=== PATIENT | female | born 1955 | race Caucasian/White ===

== ENCOUNTER 2018-09-24 13:23 | Emergency (ER) | payer OTHER ==
[~2018-09-24] VITALS: Ht 157.4 cm; Wt 70.3 kg
[~2018-09-24 13:23] MED LIST: AMOXICILLIN875 MG PO; DILTIAZEM CD240 MG PO; MEDROL DOSEPAK4 MG PO; PEPCID40 MG PO; XANAX0.5 MG PO
[2018-09-24] MEDS ORDERED: EPIPEN 2-P0.3 MG/0.3 IJ (13:39)
[2018-09-24] MEDS ORDERED: PREDNISONE10 MG PO (13:39)
[2019-01-12] MEDS ORDERED: CELEXA10 MG PO (13:56)
[2019-01-12] MEDS ORDERED: ASPIR 8181 MG PO (13:57)
[2019-01-12] MEDS ORDERED: METOPROLOL SUCC50 M1 PO (13:57)
[2019-01-12] MEDS ORDERED: LOSARTAN-HCTZ1 EAC1 PO (13:57)
== END 2018-09-24 13:44 | disposition home or self-care (01) ==
LOC: ED 13:23
DX: R21 Rash and other nonspecific skin eruption (principal); R03.0 Elevated blood-pressure reading, without diagnosis of hypertension; F17.200 Nicotine dependence, unspecified, uncomplicated; Z88.2 Allergy status to sulfonamides; Z88.8 Allergy status to other drugs, medicaments and biological substances; Z79.2 Long term (current) use of antibiotics; Z79.899 Other long term (current) drug therapy; Z90.49 Acquired absence of other specified parts of digestive tract

== ENCOUNTER → 2019-01-12 | Outpatient (CLI) | payer OTHER ==
[~2019-01-12] MED LIST changes: +ASPIR 8181 MG PO; +CELEXA10 MG PO; +EPIPEN 2-P0.3 MG/0.3 IJ; +LOSARTAN-HCTZ1 EAC1 PO; +METOPROLOL SUCC50 M1 PO; +PREDNISONE10 MG PO
--- NOTE | ~2019-01-12 | ST ---
[place], [place] EXERCISE STRESS TEST REPORT NAME: DALLAS HUNTER UNIT #: [id number] ROOM: DOCTOR: SHARRON CHIU [facility] BIRTHDATE: [birth year] DOS: 01/12/2019 LEXISCAN WITH CARDIOLITE The patient underwent Lexiscan Cardiolite. Lexiscan 0.4 mg over 10 seconds was given. Isotope was injected. Basic rhythm is sinus. No acute changes on the EKG. No complication noted. Myocardial perfusion scan to follow. The patient tolerated the procedure well. HUBER MCDERMOTT MD CM:STRESS:EXERCISE STRESS TEST REPORT [id number] HUBER MCDERMOTT MD [facility]
== END | disposition home or self-care (01) ==
LOC: CARD 01:13
DX: R07.89 Other chest pain (principal); R53.81 Other malaise

== ENCOUNTER → 2019-09-14 | Outpatient (CLI) | payer OTHER ==
[2019-09-14 13:16] LABS: FREE T4 1.12 ng/dl (0.76-1.46)
[2019-09-14 13:22] LABS: THYROID STIM HORMONE (HS) 2.59 uIU/ml (0.358-4.75)
== END | disposition home or self-care (01) ==
LOC: LAB 12:17
PROVIDERS: Internal Medicine Cardiovascular Disease
DX: I10 Essential (primary) hypertension (principal)

== ENCOUNTER → 2019-10-06 | Outpatient (CLI) | payer OTHER | END | disposition home or self-care (01) | LOC: RESCLI 00:37 | DX: Z12.11 Encounter for screening for malignant neoplasm of colon (principal); Z12.31 Encounter for screening mammogram for malignant neoplasm of breast; Z12.4 Encounter for screening for malignant neoplasm of cervix; Z76.89 Persons encountering health services in other specified circumstances; Z71.6 Tobacco abuse counseling; F41.9 Anxiety disorder, unspecified; I10 Essential (primary) hypertension; E66.3 Overweight; F17.210 Nicotine dependence, cigarettes, uncomplicated; R00.1 Bradycardia, unspecified; R06.81 Apnea, not elsewhere classified; Z88.2 Allergy status to sulfonamides; Z88.8 Allergy status to other drugs, medicaments and biological substances ==

== ENCOUNTER → 2019-10-10 | Outpatient (CLI) | payer OTHER ==
[2019-10-10 09:55] LABS: BASO % 0.7 % (0.0-1.0); EOS # 0.2 10*3/uL (0.0-0.4); EOS % 4.2 % (1.0-4.0); HEMATOCRIT 41.4 % (37.0-47.0); HEMOGLOBIN 13.6 g/dl (12.0-16.0); LYMPH # 1.9 10*3/uL (1.3-4.4); LYMPH % 46.2 % (27.0-41.0); MEAN CORPUSCULAR HGB 31.9 pg (27.0-31.0); MEAN CORPUSCULAR HGB CONC 32.9 g/dl (33.0-37.0); MONO # 0.3 10*3/uL (0.1-1.0); MONO % 8.4 % (3.0-9.0); NEUT # 1.7 10*3/uL (2.3-7.9); NEUT % 40.5 % (47.0-73.0); PLATELET COUNT AUTOMATED 298 10*3/uL (130-400); RED BLOOD COUNT 4.27 10*6/uL (4.10-5.10); RED CELL DISTRI WIDTH 13.2 % (0-14.5); WHITE BLOOD COUNT 4.1 10*3/uL (4.8-10.8)
[2019-10-10 10:29] LABS: ALBUMIN 3.6 gm/dl (3.1-4.5); BUN 15 mg/dl (7-24); CHLORIDE 110 mmol/L (98-107); CHOLESTEROL 180 mg/dL (<200); CREATININE 0.71 mg/dL (0.55-1.02); HDL CHOLESTEROL 53 mg/dl (40-60); POTASSIUM 3.7 mmol/L (3.5-5.1); SGOT/AST 27 IU/L (3-35); SGPT/ALT 48 U/L (12-78); SODIUM 142 mmol/L (136-145)
[2019-10-10 10:39] LABS: ALKALINE PHOSPHATASE 78 U/L (45-117); LDL CHOLESTEROL 110 mg/dL (9-159); TOTAL PROTEIN 6.6 gm/dL (6.4-8.2); TRIGLYCERIDES 87 mg/dl (<150); VLDL CHOLESTEROL 17 mg/dL (6-40)
== END | disposition home or self-care (01) ==
LOC: LAB 09:03
PROVIDERS: Student in an Organized Health Care Education/Training Program
DX: Z76.89 Persons encountering health services in other specified circumstances (principal)

== ENCOUNTER → 2019-11-09 | Outpatient (CLI) | payer OTHER | END | disposition home or self-care (01) | LOC: RESCLI 00:40 | DX: Z12.11 Encounter for screening for malignant neoplasm of colon (principal); Z12.31 Encounter for screening mammogram for malignant neoplasm of breast; F41.9 Anxiety disorder, unspecified; I10 Essential (primary) hypertension; E66.3 Overweight; F17.210 Nicotine dependence, cigarettes, uncomplicated; Z71.6 Tobacco abuse counseling; Z79.899 Other long term (current) drug therapy; Z88.8 Allergy status to other drugs, medicaments and biological substances ==

== ENCOUNTER → 2020-03-14 | Outpatient (CLI) | payer OTHER ==
[2020-03-14 14:02] LABS: BUN 18 mg/dl (7-24); CHLORIDE 107 mmol/L (98-107); CREATININE 0.72 mg/dL (0.55-1.02); POTASSIUM 3.7 mmol/L (3.5-5.1); SODIUM 138 mmol/L (136-145)
== END | disposition home or self-care (01) ==
LOC: LAB 12:36
PROVIDERS: Internal Medicine Cardiovascular Disease
DX: I10 Essential (primary) hypertension (principal)

== ENCOUNTER → 2020-11-29 | Outpatient (CLI) | payer OTHER | END | disposition home or self-care (01) | LOC: RAD 11:07 | PROVIDERS: ATTEND Internal Medicine | DX: R05 Cough (principal); K46.9 Unspecified abdominal hernia without obstruction or gangrene ==

== ENCOUNTER → 2021-02-25 | Outpatient (CLI) | payer OTHER | END | disposition home or self-care (01) | LOC: RAD 07:57 | PROVIDERS: ATTEND Internal Medicine | DX: K21.9 Gastro-esophageal reflux disease without esophagitis (principal); K44.9 Diaphragmatic hernia without obstruction or gangrene; R15.0 Incomplete defecation; I86.2 Pelvic varices; M51.36 Other intervertebral disc degeneration, lumbar region; K22.8 Other specified diseases of esophagus; I70.0 Atherosclerosis of aorta ==

== ENCOUNTER → 2021-07-11 | Outpatient (CLI) | payer BC ==
[2021-07-11 09:45] LABS: BASO % 0.7 % (0.0-1.0); EOS # 0.2 10*3/uL (0.0-0.4); EOS % 4.5 % (1.0-4.0); HEMATOCRIT 40.2 % (37.0-47.0); LYMPH # 1.8 10*3/uL (1.3-4.4); LYMPH % 43.7 % (27.0-41.0); MEAN CELL VOLUME 97.6 fl (81.0-99.0); MEAN CORPUSCULAR HGB 32.3 pg (27.0-31.0); MEAN CORPUSCULAR HGB CONC 33.1 g/dl (33.0-37.0); MEAN PLATELET VOLUME 11.2 fl (9.6-12.3); MONO # 0.4 10*3/uL (0.1-1.0); NEUT # 1.7 10*3/uL (2.3-7.9); NEUT % 40.9 % (47.0-73.0); PLATELET COUNT AUTOMATED 277 10*3/uL (130-400); RED BLOOD COUNT 4.12 10*6/uL (4.10-5.10); RED CELL DISTRI WIDTH 12.9 % (0-14.5); WHITE BLOOD COUNT 4.2 10*3/uL (4.8-10.8)
[2021-07-11 10:05] LABS: ALBUMIN 3.5 gm/dl (3.1-4.5); ALKALINE PHOSPHATASE 68 U/L (45-117); BUN 15 mg/dl (7-24); CHLORIDE 109 mmol/L (98-107); CHOLESTEROL 205 mg/dL (<200); LDL CHOLESTEROL 119 mg/dL (9-159); POTASSIUM 4.1 mmol/L (3.5-5.1); SGOT/AST 21 IU/L (3-35); SGPT/ALT 37 U/L (12-78); SODIUM 142 mmol/L (136-145); T3 UPTAKE 36 % (31-39); THYROXINE (T4) TOTAL 7.4 ug/dl (4.8-13.9); TOTAL PROTEIN 6.3 gm/dL (6.4-8.2); TRIGLYCERIDES 91 mg/dl (<150)
[2021-07-11 10:13] LABS: VITAMIN D, 25-HYDROXY 43.4 ng/mL (30-100)
== END | disposition home or self-care (01) ==
LOC: LAB 09:08
PROVIDERS: ATTEND Internal Medicine
DX: Z00.00 Encounter for general adult medical examination without abnormal findings (principal)

== ENCOUNTER 2021-08-27 12:18 | Emergency (ER) | payer BC ==
[~2021-08-27] VITALS: Ht 157.4 cm; Wt 65.8 kg
[2021-08-27] MEDS ORDERED: K-TAB ER8 MEQ PO (12:30)
[2021-08-27] MEDS ORDERED: CARDIZEM CD240 M1 PO (12:31)
[2021-08-27] MEDS ORDERED: PROTONIX40 MG PO (12:31)
[2021-08-27 13:40] LABS: BILIRUBIN Negative (Negative); BLOOD Negative (Negative); CLARITY Clear (Clear); COLOR Yellow (Yellow); GLUCOSE Negative (Negative); KETONE Negative (Negative); LEUKO ESTERASE Negative (Negative); NITRITE Negative (Negative); UROBILINOGEN 0.2 E.U./dl (0.0-1.0)
[2021-08-27 13:58] LABS: BACTERIA 1+; EPITHELIAL CELLS 21-30
[2021-08-27] MEDS ORDERED: CYCLOBENZAPRINE5 M3 PO (13:58)
[2021-08-27] MEDS ORDERED: PREDNISONE50 MG PO (13:58)
== END 2021-08-27 14:30 | disposition home or self-care (01) ==
LOC: ED 12:18
PROVIDERS: Internal Medicine
DX: M54.50 Low back pain, unspecified (principal)

== ENCOUNTER → 2022-11-26 | Outpatient (CLI) | payer OTHER ==
[~2022-11-26] MED LIST changes: +CARDIZEM CD240 M1 PO; +CYCLOBENZAPRINE5 M3 PO; +K-TAB ER8 MEQ PO; +PREDNISONE50 MG PO; +PROTONIX40 MG PO
== END | disposition home or self-care (01) ==
LOC: RAD 09:22
PROVIDERS: ATTEND Internal Medicine
DX: M25.511 Pain in right shoulder (principal)

== ENCOUNTER → 2023-04-30 | Outpatient (CLI) | payer MEDICARE ==
[2023-04-30 11:59] LABS: BUN 19 mg/dl (9-23); CHLORIDE 99 mmol/L (98-107); POTASSIUM 3.3 mmol/L (3.4-5.1)
== END | disposition home or self-care (01) ==
LOC: LAB 10:52
PROVIDERS: Internal Medicine; ATTEND Student in an Organized Health Care Education/Training Program
DX: U07.1 COVID-19 (principal)

== ENCOUNTER 2023-06-11 06:19 | Emergency (ER) | payer MEDICARE ==
[~2023-06-11] VITALS: Ht 160 cm; Wt 64.9 kg
[2023-06-11] MEDS ORDERED: PREDNISONE20 M1 PO (06:44)
== END 2023-06-11 07:09 | disposition home or self-care (01) ==
LOC: ED 06:19
DX: T63.481A Toxic effect of venom of other arthropod, accidental (unintentional), initial encounter (principal); H92.02 Otalgia, left ear; R22.0 Localized swelling, mass and lump, head; Z88.2 Allergy status to sulfonamides; Z88.8 Allergy status to other drugs, medicaments and biological substances; Z79.899 Other long term (current) drug therapy; Z98.51 Tubal ligation status; Z90.49 Acquired absence of other specified parts of digestive tract; Y92.89 Other specified places as the place of occurrence of the external cause

== ENCOUNTER 2023-11-28 11:32 | Emergency (ER) | payer MEDICARE, OTHER ==
[~2023-11-28] VITALS: Ht 157.4 cm; Wt 65.8 kg
[~2023-11-28 11:32] MED LIST changes: +PREDNISONE20 M1 PO
[2023-11-28] MEDS ORDERED: Acetaminophen/Oxycodone 5 MG/325 MG TABLET PO ONE (11:50)
[2023-11-28] MEDS ORDERED: HYDROCODONE-AC1 EAC1 PO (12:06)
== END 2023-11-28 12:15 | disposition home or self-care (01) ==
LOC: ED 11:32
DX: S62.521A Displaced fracture of distal phalanx of right thumb, initial encounter for closed fracture (principal); I10 Essential (primary) hypertension; F32.A Depression, unspecified; F41.9 Anxiety disorder, unspecified; Z88.2 Allergy status to sulfonamides; Z88.8 Allergy status to other drugs, medicaments and biological substances; Z98.51 Tubal ligation status; Z90.49 Acquired absence of other specified parts of digestive tract; W01.10XA Fall on same level from slipping, tripping and stumbling with subsequent striking against unspecified object, initial encounter; Y93.89 Activity, other specified; Y92.89 Other specified places as the place of occurrence of the external cause; Y99.8 Other external cause status

== ENCOUNTER → 2024-01-10 | Outpatient (CLI) | payer OTHER ==
[~2024-01-10] MED LIST changes: +HYDROCODONE-AC1 EAC1 PO
== END | disposition home or self-care (01) ==
LOC: RAD 01-07 08:00
PROVIDERS: ATTEND Internal Medicine
DX: Z13.820 Encounter for screening for osteoporosis (principal); Z78.0 Asymptomatic menopausal state; I10 Essential (primary) hypertension; F17.210 Nicotine dependence, cigarettes, uncomplicated

== ENCOUNTER → 2025-01-12 | Outpatient (CLI) | payer OTHER | END | disposition home or self-care (01) | LOC: RAD 14:13 | PROVIDERS: ATTEND Internal Medicine | DX: M47.817 Spondylosis without myelopathy or radiculopathy, lumbosacral region (principal); M48.061 Spinal stenosis, lumbar region without neurogenic claudication; M54.50 Low back pain, unspecified; M25.552 Pain in left hip; G89.29 Other chronic pain ==

== ENCOUNTER → 2025-02-26 | Day surgery (SDC) | payer OTHER ==
[~2025-02-26] VITALS: Ht 160 cm; Wt 68.5 kg
[~2025-02-26] MED LIST changes: +Lactated Ringer's Solution 1,000 ML IV ONE; +Lidocaine Hydrochloride 5 ML VIAL IV ONE; +PROPOFOL 200 MG/20 ML VIAL IV ONE
[2025-02-26 07:33] VITALS: BP 115/69
[2025-02-26 09:11] VITALS: BP 94/49
[2025-02-26 09:26] VITALS: BP 102/54
[2025-02-26 09:39] VITALS: BP 112/49
== END | disposition home or self-care (01) ==
LOC: SDC 02-23 10:15
PROVIDERS: ATTEND Surgery
DX: R13.10 Dysphagia, unspecified (principal); K44.9 Diaphragmatic hernia without obstruction or gangrene; I10 Essential (primary) hypertension; F41.9 Anxiety disorder, unspecified; F32.A Depression, unspecified; I25.10 Atherosclerotic heart disease of native coronary artery without angina pectoris; E78.00 Pure hypercholesterolemia, unspecified; F17.210 Nicotine dependence, cigarettes, uncomplicated; K21.9 Gastro-esophageal reflux disease without esophagitis; Z20.822 Contact with and (suspected) exposure to COVID-19; Z88.1 Allergy status to other antibiotic agents; Z98.890 Other specified postprocedural states; Z88.8 Allergy status to other drugs, medicaments and biological substances; Z79.899 Other long term (current) drug therapy